=== PATIENT | male | born 1980 | race American Indian/Alaskan Native ===

== ENCOUNTER 2021-03-23 10:34 | Inpatient (IN) | payer SELFPAY ==
--- NOTE | 2021-03-23 10:49 | Emergency Department Report ---
<OLEGARIO BURROUGHS - Last Filed: 03/24/21 00:16> ED Neuro Deficit HPI - General Chief Complaint: Neuro Symptoms/Deficit Stated Complaint: POSSIBLE CVA Time Seen by Provider: 03/23/21 10:46 - Related Data Home Medications: Home Medications Medication Instructions Recorded Confirmed Last Taken Aspirin EC [Halfprin EC] 81 mg PO QDAY 03/24/21 03/24/21 03/23/21 Lovastatin 20 mg PO QDAY 03/24/21 03/24/21 03/23/21 Metoprolol [Lopressor TAB] 50 mg PO BID 03/24/21 03/24/21 03/23/21 Allergies/Adverse Reactions: Allergies Allergy/AdvReac Type Severity Reaction Status Date / Time No Known Allergies Allergy Verified 03/23/21 10:39 ED Past Medical Hx - Medications Home Medications: Home Medications Medication Instructions Recorded Confirmed Last Taken Type Aspirin EC [Halfprin EC] 81 mg PO QDAY 03/24/21 03/24/21 03/23/21 History Lovastatin 20 mg PO QDAY 03/24/21 03/24/21 03/23/21 History Metoprolol [Lopressor TAB] 50 mg PO BID 03/24/21 03/24/21 03/23/21 History ED Course - Reevaluation(s) Reevaluation #5: 03/23/21 20:10 Patient examined by me. Patient is alert, oriented x3 in no acute distress. Stroke scale stable 0. I discussed the patient with Dr. Isaac Louie, neurosurgeon on-call and he stated that he is still trying to find a bed for him in [facility]. - Lab Data Result diagrams: 03/23/21 11:13 03/23/21 14:28 - Medical Decision Making Patient was brought in as a stroke alert. 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 He had problems with right- sided weakness and dysarthria. He was promptly evaluated by EMS and transported here for code stroke. Patient does admit that he is having right-sided weakness. He is having dysarthria. He does have some word finding issues. He is never had symptoms like this before. He has no blurry vision. He has had no history of recent head trauma. Patient has had no bleeding from the gut. He has had no hematuria. He denies other complaints at this time. Patient remained stable in the ER with stable vital sign. Stroke scale is 0. I discussed the patient with Dr. Isaac Louie, neurosurgeon on-call. He stated that he tried several hospital in the area and they do not have bed available. stated that to admit the patient to the hospital and he will make disposition for patient in the morning. I discussed the patient with Dr. Rojas, he agreed to admit the patient to medical service for further management. Critical Care Time: Yes Critical care time in (mins) excluding proc time.: 45 ED Disposition Clinical Impression: TIA (transient ischemic attack), Thrombosis of left middle cerebral artery Disposition: ADMITTED INPATIENT Is pt being admited?: Yes Condition: Stable <LUNA WILEY - Last Filed: 03/24/21 11:43> ED Neuro Deficit HPI - General Source: EMS Mode of arrival: Stretcher Limitations: No Limitations - History of Present Illness Initial Comments: Patient was brought in as a stroke alert. 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 He had problems with right-sided weakness and dysarthria. He was promptly evaluated by EMS and transported here for code stroke. Patient does admit that he is having right- sided weakness. He is having dysarthria. He does have some word finding issues. He is never had symptoms like this before. He has no blurry vision. He has had no history of recent head trauma. Patient has had no bleeding from the gut. He has had no hematuria. He denies other complaints at this time. ED Review of Systems ROS: Stated complaint: POSSIBLE CVA Other details as noted in HPI Comment: All other systems reviewed and negative Constitutional: denies: fever Eyes: denies: vision change ENT: denies: epistaxis Respiratory: other (No hemoptysis) Cardiovascular: denies: chest pain Endocrine: denies: unexplained weight loss Gastrointestinal: denies: hematemesis Genitourinary: denies: hematuria Musculoskeletal: denies: back pain Skin: denies: rash Neurological: as per HPI Hematological/Lymphatic: denies: easy bruising ED Neuro Physical Exam - General Limitations: No Limitations, Other (Pulse ox noted and normal per EMS) General appearance: alert, in no apparent distress Suspected Stroke: Yes - Head Head exam: Present: atraumatic - Eye Eye exam: Present: normal appearance, EOMI. Absent: scleral icterus - ENT ENT exam: Present: normal orophraynx, normal external ear exam - Neck Neck exam: Present: normal inspection. Absent: meningismus - Respiratory Respiratory exam: Present: normal lung sounds bilaterally. Absent: respiratory distress - Cardiovascular Cardiovascular Exam: Present: regular rate, normal rhythm - GI/Abdominal GI/Abdominal exam: Present: soft. Absent: tenderness - Extremities Exam Extremities exam: Present: normal capillary refill. Absent: pedal edema - Back Exam Back exam: Absent: CVA tenderness (R), CVA tenderness (L) - Neurological Exam Neurological exam: Present: alert - NIHSS Assessment Interval: Baseline 1a. Level of Consciousness: alert/keenly responsive 1b. LOC Questions: answers both correctly 1c. LOC Commands: performs tasks correctly 2. Best Gaze: normal 3. Visual: no visual loss 4. Facial Palsy: minor paralysis 5b. Motor Arm Right: drift 5a. Motor Arm Left: no drift 6a. Motor Leg Left: no drift 6b. Motor Leg Right: no drift 7. Limb Ataxia: absent 8. Sensory: normal 9. Best Language: mild/moderate aphasia 10. Dysarthria: mild/moderate dysarthria 11. Extinction/Inattention: no abnormality Total Score: 4 Stroke Severity: Minor Stroke - Psychiatric Psychiatric exam: Present: normal affect, normal mood - Skin Skin exam: Present: warm, dry ED Course Vital Signs 03/23/21 03/23/21 03/23/21 11:15 11:30 11:31 Temperature Pulse Rate 71 69 67 Respiratory 25 H 14 18 Rate Blood Pressure 145/93 Blood Pressure 145/93 [Left] O2 Sat by Pulse 99 99 99 Oximetry 03/23/21 03/23/21 03/23/21 11:45 12:00 12:01 Temperature Pulse Rate 70 67 65 Respiratory 18 20 10 L Rate Blood Pressure 159/74 154/80 Blood Pressure 159/74 154/80 [Left] O2 Sat by Pulse 100 100 100 Oximetry 03/23/21 03/23/21 03/23/21 12:15 12:31 12:45 Temperature Pulse Rate 70 66 73 Respiratory 27 H 25 H 14 Rate Blood Pressure 158/87 165/94 141/97 Blood Pressure 158/87 [Left] O2 Sat by Pulse 100 99 99 Oximetry 03/23/21 03/23/21 03/23/21 13:01 13:15 13:31 Temperature Pulse Rate 64 Respiratory 25 H 12 26 H Rate Blood Pressure 141/97 141/97 153/94 Blood Pressure [Left] O2 Sat by Pulse 98 99 100 Oximetry 03/23/21 03/23/21 03/23/21 13:45 14:00 14:09 Temperature 98.5 F Pulse Rate Respiratory 25 H 23 Rate Blood Pressure 152/92 153/98 Blood Pressure [Left] O2 Sat by Pulse 100 99 Oximetry 03/23/21 03/23/21 03/23/21 14:15 14:30 14:45 Temperature Pulse Rate Respiratory Rate Blood Pressure 147/93 139/97 145/95 Blood Pressure [Left] O2 Sat by Pulse 100 100 100 Oximetry 03/23/21 03/23/21 03/23/21 15:01 15:15 15:31 Temperature Pulse Rate Respiratory Rate Blood Pressure 152/95 143/98 152/98 Blood Pressure [Left] O2 Sat by Pulse 100 99 100 Oximetry 03/23/21 03/23/21 03/23/21 15:45 16:00 16:15 Temperature Pulse Rate Respiratory Rate Blood Pressure 155/92 146/94 148/96 Blood Pressure [Left] O2 Sat by Pulse 98 98 98 Oximetry 03/23/21 03/23/21 03/23/21 16:30 16:45 17:00 Temperature Pulse Rate Respiratory Rate Blood Pressure 148/96 146/86 133/86 Blood Pressure [Left] O2 Sat by Pulse 99 97 96 Oximetry 03/23/21 03/23/21 03/23/21 17:15 17:30 17:45 Temperature Pulse Rate 58 L Respiratory Rate Blood Pressure 140/93 131/84 151/91 Blood Pressure [Left] O2 Sat by Pulse 96 98 99 Oximetry 03/23/21 03/23/21 03/23/21 18:00 18:15 18:30 Temperature Pulse Rate 56 L Respiratory Rate Blood Pressure 141/94 139/92 140/95 Blood Pressure [Left] O2 Sat by Pulse 99 98 99 Oximetry 03/23/21 03/23/21 03/23/21 18:45 19:00 19:16 Temperature Pulse Rate Respiratory Rate Blood Pressure 152/92 144/85 146/88 Blood Pressure [Left] O2 Sat by Pulse 97 96 95 Oximetry 03/23/21 03/23/21 03/23/21 19:30 19:45 20:01 Temperature Pulse Rate Respiratory Rate Blood Pressure 130/84 129/81 127/81 Blood Pressure [Left] O2 Sat by Pulse 95 95 97 Oximetry 03/23/21 03/23/21 03/23/21 20:15 20:30 20:45 Temperature Pulse Rate Respiratory Rate Blood Pressure 136/84 142/90 135/83 Blood Pressure [Left] O2 Sat by Pulse 95 96 91 Oximetry 03/23/21 03/23/21 03/23/21 21:01 21:15 21:30 Temperature Pulse Rate Respiratory Rate Blood Pressure 137/84 145/82 145/92 Blood Pressure [Left] O2 Sat by Pulse 94 98 96 Oximetry 03/23/21 03/23/21 03/23/21 21:45 22:00 22:15 Temperature Pulse Rate Respiratory Rate Blood Pressure 139/89 129/82 137/87 Blood Pressure [Left] O2 Sat by Pulse 94 95 94 Oximetry 03/23/21 03/23/21 03/23/21 22:23 22:30 22:45 Temperature Pulse Rate Respiratory Rate Blood Pressure 137/87 146/84 155/87 Blood Pressure [Left] O2 Sat by Pulse 95 95 95 Oximetry 03/23/21 03/23/21 03/23/21 23:00 23:15 23:30 Temperature Pulse Rate Respiratory Rate Blood Pressure 136/92 150/88 139/93 Blood Pressure [Left] O2 Sat by Pulse 97 96 96 Oximetry 03/23/21 03/24/21 03/24/21 23:45 00:00 00:15 Temperature Pulse Rate Respiratory Rate Blood Pressure 145/90 137/88 145/93 Blood Pressure [Left] O2 Sat by Pulse 94 96 96 Oximetry 03/24/21 03/24/21 03/24/21 00:30 00:45 01:01 Temperature Pulse Rate Respiratory Rate Blood Pressure 134/98 142/101 131/98 Blood Pressure [Left] O2 Sat by Pulse 90 93 98 Oximetry 03/24/21 03/24/21 03/24/21 01:15 01:30 01:45 Temperature Pulse Rate Respiratory Rate Blood Pressure 134/87 136/88 129/82 Blood Pressure [Left] O2 Sat by Pulse 96 96 97 Oximetry 03/24/21 03/24/2122 02:00 02:01 02:15 Temperature Pulse Rate Respiratory 18 Rate Blood Pressure 116/89 143/100 Blood Pressure [Left] O2 Sat by Pulse 100 97 97 Oximetry 03/24/21 03/24/21 03/24/21 02:31 02:45 03:00 Temperature Pulse Rate Respiratory Rate Blood Pressure 143/101 130/73 120/69 Blood Pressure [Left] O2 Sat by Pulse 97 96 94 Oximetry 03/24/21 03/24/21 03/24/21 03:15 03:30 03:45 Temperature Pulse Rate Respiratory Rate Blood Pressure 131/74 126/72 136/77 Blood Pressure [Left] O2 Sat by Pulse 96 97 97 Oximetry 03/24/21 03/24/21 03/24/21 04:00 04:15 04:30 Temperature Pulse Rate Respiratory Rate Blood Pressure 137/94 142/90 142/91 Blood Pressure [Left] O2 Sat by Pulse 97 99 96 Oximetry 03/24/21 03/24/21 03/24/21 04:45 05:01 05:15 Temperature Pulse Rate Respiratory Rate Blood Pressure 154/98 145/91 140/90 Blood Pressure [Left] O2 Sat by Pulse 95 99 95 Oximetry 03/24/21 03/24/21 03/24/21 05:30 05:45 06:00 Temperature Pulse Rate Respiratory Rate Blood Pressure 143/85 152/93 164/89 Blood Pressure [Left] O2 Sat by Pulse 97 97 97 Oximetry 03/24/21 03/24/21 03/24/21 06:15 06:30 06:45 Temperature Pulse Rate Respiratory Rate Blood Pressure 154/92 143/89 149/86 Blood Pressure [Left] O2 Sat by Pulse 98 97 98 Oximetry 03/24/21 03/24/21 07:00 08:35 Temperature Pulse Rate 74 Respiratory 16 Rate Blood Pressure 145/89 Blood Pressure 149/84 [Left] O2 Sat by Pulse 98 96 Oximetry - Reevaluation(s) Reevaluation #1: 03/23/21 10:40 EMS was met upon arrival. Patient was taken urgently to CT. Neurology was to be on the camera. Old records reviewed. Reevaluation #2: 03/23/21 11:25 CT imaging is complete. Neurology is evaluating the patient. CT reads are pending. Reevaluation #3: 03/23/21 12:47 Case had been discussed with the receiving facility and attending at [facility]. They did not have beds available. Patient was contemplating signing out AGAINST MEDICAL ADVICE. I did have a conversation with him and his spouse. They have now agreed that transfer would be appropriate. We are attempting to find bed placement at [facility]. Case had also been discussed multiple times with the on- call neurologist. Reevaluation #4: 03/23/21 15:07 Case has been discussed with the neuro interventionalist at multiple facilities including [facility], [facility], [facility], [facility], [place], and [facility]. None of them believe that intervention is emergently indicated at this time. Patient's symptoms have improved. He does have thrombus that needs to be addressed, but their recommendation is symptomatic treatment, complete stroke work-up, and intervene if needed. At this time, there do not appear to be any Hospital systems within the state boundaries that can accept this patient that have neuro intervention. We will further discuss with the hospitalist. Case has been discussed with the neurologist who agrees that the recommendation was for transfer if possible as put in the note. During this pandemic, this does not appear to be possible. - Lab Data Result diagrams: 03/23/21 11:13 03/23/21 14:28 Lab Results 03/23/21 03/23/21 03/23/21 Range/Units 11:12 11:12 11:12 WBC (4.5-11.0) K/mm3 RBC (3.65-5.03) M/mm3 Hgb (11.8-15.2) gm/dl Hct (35.5-45.6) % MCV (84-94) fl MCH (28-32) pg MCHC (32-34) % RDW (13.2-15.2) % Plt Count (140-440) K/mm3 Lymph % (Auto) (13.4-35.0) % [place] % (Auto) (0.0-7.3) % Eos % (Auto) (0.0-4.3) % Baso % (Auto) (0.0-1.8) % Lymph # (Auto) (1.2-5.4) K/mm3 [place] # (Auto) (0.0-0.8) K/mm3 Eos # (Auto) (0.0-0.4) K/mm3 Baso # (Auto) (0.0-0.1) K/mm3 Seg Neutrophils % (40.0-70.0) % Seg Neutrophils # (1.8-7.7) K/mm3 PT 13.4 (12.2-14.9) Sec. INR 0.92 (0.87-1.13) APTT 35.3 (24.2-36.6) Sec. Thrombin Time 20.1 H (15.1-19.6) Sec. Heparin Anti-Xa Level (0.3-0.7) U.I./ml Sodium (137-145) mmol/L Potassium (3.6-5.0) mmol/L Chloride (98-107) mmol/L Carbon Dioxide (22-30) mmol/L Anion Gap mmol/L BUN (9-20) mg/dL Creatinine (0.8-1.3) mg/dL Estimated GFR ml/min BUN/Creatinine Ratio % Glucose (75-100) mg/dL Hemoglobin A1c (4-6) % Calcium (8.4-10.2) mg/dL Total Creatine Kinase 123 (55-170) units/L CK-MB (CK-2) < 1.0 (0.0-4.0) ng/mL CK-MB (CK-2) Rel Index 0.8 (0-4) Troponin T < 0.010 (0.00-0.029) ng/mL Triglycerides 71 (2-149) mg/dL Cholesterol 192 (50-199) mg/dL LDL Cholesterol Direct 142 H (50-130) mg/dL HDL Cholesterol 39 L (40-59) mg/dL Cholesterol/HDL Ratio 4.92 % 03/23/21 03/23/21 03/23/21 Range/Units 11:13 14:28 15:30 WBC 7.2 (4.5-11.0) K/mm3 RBC 5.05 H (3.65-5.03) M/mm3 Hgb 14.6 (11.8-15.2) gm/dl Hct 47.5 H (35.5-45.6) % MCV 94 (84-94) fl MCH 29 (28-32) pg MCHC 31 L (32-34) % RDW 15.8 H (13.2-15.2) % Plt Count 383 (140-440) K/mm3 Lymph % (Auto) 34.7 (13.4-35.0) % [place] % (Auto) 8.3 H (0.0-7.3) % Eos % (Auto) 1.6 (0.0-4.3) % Baso % (Auto) 1.4 (0.0-1.8) % Lymph # (Auto) 2.5 (1.2-5.4) K/mm3 [place] # (Auto) 0.6 (0.0-0.8) K/mm3 Eos # (Auto) 0.1 (0.0-0.4) K/mm3 Baso # (Auto) 0.1 (0.0-0.1) K/mm3 Seg Neutrophils % 54.0 (40.0-70.0) % Seg Neutrophils # 3.9 (1.8-7.7) K/mm3 PT (12.2-14.9) Sec. INR (0.87-1.13) APTT (24.2-36.6) Sec. Thrombin Time (15.1-19.6) Sec. Heparin Anti-Xa Level (0.3-0.7) U.I./ml Sodium 139 (137-145) mmol/L Potassium 4.7 (3.6-5.0) mmol/L Chloride 102.6 (98-107) mmol/L Carbon Dioxide 22 (22-30) mmol/L Anion Gap 19 mmol/L BUN 8 L (9-20) mg/dL Creatinine 1.0 (0.8-1.3) mg/dL Estimated GFR > 60 ml/min BUN/Creatinine Ratio 8 % Glucose 89 (75-100) mg/dL Hemoglobin A1c 6.7 H (4-6) % Calcium 8.9 (8.4-10.2) mg/dL Total Creatine Kinase (55-170) units/L CK-MB (CK-2) (0.0-4.0) ng/mL CK-MB (CK-2) Rel Index (0-4) Troponin T (0.00-0.029) ng/mL Triglycerides (2-149) mg/dL Cholesterol (50-199) mg/dL LDL Cholesterol Direct (50-130) mg/dL HDL Cholesterol (40-59) mg/dL Cholesterol/HDL Ratio % 03/23/21 03/24/21 Range/Units 19:15 01:03 WBC (4.5-11.0) K/mm3 RBC (3.65-5.03) M/mm3 Hgb (11.8-15.2) gm/dl Hct (35.5-45.6) % MCV (84-94) fl MCH (28-32) pg MCHC (32-34) % RDW (13.2-15.2) % Plt Count (140-440) K/mm3 Lymph % (Auto) (13.4-35.0) % [place] % (Auto) (0.0-7.3) % Eos % (Auto) (0.0-4.3) % Baso % (Auto) (0.0-1.8) % Lymph # (Auto) (1.2-5.4) K/mm3 [place] # (Auto) (0.0-0.8) K/mm3 Eos # (Auto) (0.0-0.4) K/mm3 Baso # (Auto) (0.0-0.1) K/mm3 Seg Neutrophils % (40.0-70.0) % Seg Neutrophils # (1.8-7.7) K/mm3 PT (12.2-14.9) Sec. INR (0.87-1.13) APTT (24.2-36.6) Sec. Thrombin Time (15.1-19.6) Sec. Heparin Anti-Xa Level 0.33 0.46 (0.3-0.7) U.I./ml Sodium (137-145) mmol/L Potassium (3.6-5.0) mmol/L Chloride (98-107) mmol/L Carbon Dioxide (22-30) mmol/L Anion Gap mmol/L BUN (9-20) mg/dL Creatinine (0.8-1.3) mg/dL Estimated GFR ml/min BUN/Creatinine Ratio % Glucose (75-100) mg/dL Hemoglobin A1c (4-6) % Calcium (8.4-10.2) mg/dL Total Creatine Kinase (55-170) units/L CK-MB (CK-2) (0.0-4.0) ng/mL CK-MB (CK-2) Rel Index (0-4) Troponin T (0.00-0.029) ng/mL Triglycerides (2-149) mg/dL Cholesterol (50-199) mg/dL LDL Cholesterol Direct (50-130) mg/dL HDL Cholesterol (40-59) mg/dL Cholesterol/HDL Ratio % Critical care attestation.: If time is entered above; I have spent that time in minutes in the direct care of this critically ill patient, excluding procedure time.
[2021-03-23 11:27] LABS: Basophils # (Auto) 0.1 K/mm3 (0.0-0.1); Basophils % (Auto) 1.4 % (0.0-1.8); Eosinophils # (Auto) 0.1 K/mm3 (0.0-0.4); Eosinophils % (Auto) 1.6 % (0.0-4.3); Lymphocytes # (Auto) 2.5 K/mm3 (1.2-5.4); Lymphocytes % (Auto) 34.7 % (13.4-35.0); Mean Corpuscular HGB Conc 31 % (32-34); Mean Corpuscular Volume 94 fl (84-94); Monocytes # (Auto) 0.6 K/mm3 (0.0-0.8); Monocytes % (Auto) 8.3 % (0.0-7.3); Platelet Count 383 K/mm3 (140-440); Red Blood Count 5.05 M/mm3 (3.65-5.03); Red Cell Distribution Width 15.8 % (13.2-15.2)
[2021-03-23 11:28] LABS: Hematocrit 47.5 % (35.5-45.6); Hemoglobin 14.6 gm/dl (11.8-15.2)
[2021-03-23 11:35] LABS: INR 0.92 (0.87-1.13); Partial Thromboplastin Time 35.3 Sec. (24.2-36.6)
[2021-03-23 11:36] LABS: Thrombin Time 20.1 Sec. (15.1-19.6)
--- NOTE | 2021-03-23 11:51 | Cat Scan Report ---
CT NONENHANCED CT SCAN OF THE HEAD: INDICATION / CLINICAL INFORMATION: 41 years Male; stroke sx. TECHNIQUE: Routine CT head without contrast. All CT scans at this location are performed using CT dos e reduction for ALARA by means of automated exposure control. COMPARISON: None. FINDINGS: BRAIN / INTRACRANIAL CONTENTS: No intracerebral hemorrhage or stroke mimics No acute hemorrhage, mass effect, midline shift, hydrocephalus, or acute, large territorial infarct. Low-attenuation lesion in volving right superior temporal gyrus and right angular gyrus; difficult to determine the age of this ischemia; adjacent cortical sulci appear to be prominent; probably chronic but unable to confirm. No significant white matter abnormality. CRANIOCERVICAL JUNCTION: No significant abnormality. ORBITS: No significant abnormality of visualized orbits. SINUSES / MASTOIDS: No significant abnormality of the visualized paranasal sinuses or mastoid air travis ls. ADDITIONAL FINDINGS: None. IMPRESSION: No Intracerebral hemorrhage or stroke mimics; low-attenuation area involving the right angular gyrus and right superior temporal gyrus; ischemia; age indeterminate CTA NECK WITH CONTRAST HISTORY: "Stroke COMPARISON: None. TECHNIQUE: Routine CTA of the neck was performed. 3-D/MIP reformats were postprocessed. Percentage s tenosis is determined by direct quantitative measurements of diseased internal carotid artery diamete r compared with normal distal internal carotid artery reference segments or by criteria similar to NA SCET where applicable.All CT scans at this location are performed using CT dose reduction for ALARA b y means of automated exposure control CONTRAST: 100 ml of Omnipaque 350 FINDINGS: Aortic arch: No significant abnormality. 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 Carotid bifurcations: Normal Cervical internal carotid arteries: CTA of the neck, cervical segment of internal carotid arteries no rmal up to C2-C3 disc level; in the CTA of the head, both internal carotid arteries are normal above and below the level of occipital condyles; internal carotid arteries at C2 up to just below the skull base not included in the [id number] Additional findings: None. 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 Posterior cerebral arteries: No significant abnormality. Both posterior communicating arteries are co ntributing to posterior cerebral arteries Intracranial internal carotid arteries: No significant abnormality. Anterior cerebral arteries: No significant abnormality. Middle cerebral arteries: No significant abnormality. Dural venous sinuses:Not optimally opacified. No significant abnormality. Additional findings: None. IMPRESSION: 1. No significant abnormality. Signer Name: Reba Jacobo MD Signed: 03/23/2021 11:46 AM Workstation Name: [id number]
[2021-03-23] MEDS ORDERED: ASPIRIN 81 MG TAB CHEW PO ONE (11:59)
[2021-03-23 12:00] LABS: Creatine Kinase MB < 1.0 ng/mL (0.0-4.0)
[2021-03-23] MEDS ORDERED: HEPARIN 10,000 UNITS/10 ML VIAL IV ONE (12:00)
[2021-03-23] MEDS ORDERED: HEPARIN/ 0.45% NACL DRIP 25,000 UNIT/500 ML BAG IV SCH (12:00)
--- NOTE | 2021-03-23 12:01 | Consultation ---
Medications and Allergies Allergies Allergy/AdvReac Type Severity Reaction Status Date / Time No Known Allergies Allergy Verified 03/23/21 10:39 Results - Laboratory Findings CBC and BMP: 03/23/21 11:13 Abnormal Lab Findings: Abnormal Labs 03/23/21 03/23/21 11:12 11:13 RBC 5.05 H Hct 47.5 H MCHC 31 L RDW 15.8 H [place] % (Auto) 8.3 H Thrombin Time 20.1 H Assessment and Plan [facility] Consult Note # Demographics Consult Type: Acute Stroke Level 1 (0-4.5 hrs) Patient Location: Emergency Room First Name: Tone Last Name: Ketty Age: 41 Gender: Male Facility: [facility] Time of Initial Page (): 03/23/2021, 10:19 Time of Return Call ( Time): 03/23/2021, 10:20 # HPI History: 41M with right arm weakness, left gaze, 10:00 reportedly was well. Mild right arm weakness and aphasia is reported. # Scores Time of exam and NIHSS ( Time): 03/23/2021, 11:26 Level of Consciousness 1a: [0] = Alert; keenly responsive LOC Questions 1b: [0] = Answers both questions correctly LOC Commands 1c: [0] = Performs both tasks correctly Best Gaze 2: [0] = Normal Visual 3: [0] = No visual loss Facial Palsy 4: [0] = Normal symmetrical movements Motor Arm Left 5a: [0] = No drift Motor Arm Right 5b: [0] = No drift Motor Leg Left 6a: [0] = No drift Motor Leg Right 6b: [0] = No drift Limb Ataxia 7: [0] = Absent Sensory 8: [0] = Normal Best Language 9: [0] = No aphasia Dysarthria 10: [0] = Normal Extinction and Inattention 11: [0] = No abnormality NIHSS Total: 0 # PMH-FH-SH Past Medical History: hypertension Social History: smoker # Assessment Impression: Transient Ischemic Attack No residual deficit, or non-disabling deficit that I can identify. Risk > benefit for IV tPA with available data. # Plan Thrombolytic/Intervention: NOT IV Thrombolysis or IA Intervention candidate Thrombolytic Exclusion (< 3 hour window): non-disabling deficit Intraarterial Exclusion: other pending CTA head/neck. Target Blood Pressure: SBP < 220 Labs: urine drug screen Imaging: (urgency: STAT): CT Angiogram Head and CT Angiogram Neck Imaging: (urgency: routine): MRI Brain without contrast Diagnostic Test: echo with bubble study Medication: anticoagulation with heparin infusion Other: LDL < 70 If patient has any neurological deterioration please call me back immediately permissive hypertension telemetry monitoring I have discussed my recommendations with the referring provider Additional Recommendations: benefit > risk as best I can determine for heparin gtt given suspected non-occlusive thrombus left MCA and possibly vertebral artery also. Transfer to neuro-endovascular center if possible in case intervention needed. Disposition: transfer to [place] capable facility # Logistics Telemedicine: Interactive 2 way audio and visual telecommunication technology was utilized during this visit
--- NOTE | 2021-03-23 12:05 | Cat Scan Report ---
CT angio head INDICATION / CLINICAL INFORMATION: 41 years Male; stroke sx. TECHNIQUE: Thin cut axial images obtained through the head during IV bolus contrast administration. S agittal, coronal, and 3 plane MIP reconstructions performed by the technologist. NASCET type criteria used evaluate stenoses. Automated exposure control utilized for radiation reduction purposes. . COMPARISON: None available. FINDINGS: INTERNAL CAROTID ARTERIES: No significant narrowing appreciated. VERTEBROBASILAR SYSTEM: Vertebral basilar system is diminutive in size. A majority of blood flow to t he posterior cerebral circulation is fed via posterior communicating arteries. The right vertebral artery appears to be widely patent. The left vertebral artery appears to be occlu ded in the region of foramen magnum. Presumably the distal left vertebral artery is being fed via ret rograde flow. The basilar artery, although diminutive in size, appears to be widely patent throughout. DISTAL BRANCHES: Distal branches of the anterior, middle, and posterior cerebral arteries are fairly symmetric in appearance and number. However, findings suggest a focus of nonocclusive thrombus or soft tissue plaque in the MCA trifurcat ion region on the left, extending for approximately 5 mm. In addition, a focal area of narrowing (or thrombus) may be present in the a posterior sylvian fissure branch of the MCA territory on the right, which appears to supply the supramarginal gyral region. The A1 segment on the right is relatively hypoplastic when compared with the left. ANEURYSM: None identified. ADDITIONAL FINDINGS: Prominent soft tissue is seen in the roof the nasopharynx, presumably related to reactive adenoidal tissue. Please clinically correlate. Mild to moderate mucosal thickening seen in the ethmoids. Mucous retention cysts/polyps seen in both maxillary antra. Note, subacute to chronic, small branch, MCA infarct is seen in the right parietotemporal region. Dif fusion imaging by MRI may be helpful for further evaluation. IMPRESSION: 1. Nonocclusive thrombus versus soft tissue plaque seen in the MCA trifurcation region on the left as described above. 2. Occlusions of a portion of the left vertebral artery suggested, as described above. 2. Subacute to chronic, small branch, posterior MCA infarct noted on the right, as described above. CRITICAL RESULT: Exam Completed (ANIMAL CARE SPECIALIST/CDT): 03/23/2021 10:26 AM Exam Reviewed (ANIMAL CARE SPECIALIST/CDT): 10:45 AM Time of Communication (ANIMAL CARE SPECIALIST/CDT): 10:55 AM Licensed Practitioner Receiving Report: Dr. Lassiter Information confirmed: Yes. Signer Name: Morales Thakur MD, III Signed: 03/23/2021 12:01 PM Workstation Name: [id number]
--- NOTE | 2021-03-23 13:12 | Cat Scan Report ---
CT HEAD WITHOUT CONTRAST INDICATION / CLINICAL INFORMATION: call report [phone] weakness code stroke. TECHNIQUE: Axial imaging performed from the skull apex through the skull base without the use of cont rast. Sagittal and coronal reformatted images. All CT scans at this location are performed using CT dose reduction for ALARA by means of automated exposure control. COMPARISON: None available. FINDINGS: CEREBRAL PARENCHYMA: Chronic infarct in the right posterior temporal lobe measures up to 2.6 x 1.8 cm in axial plane. 7 mm chronic lacunar infarct in the right subinsular region is also identified. No a cute parenchymal abnormality or mass is detected. HEMORRHAGE: None. EXTRA-AXIAL SPACES: Normal in size and morphology for the patient's age. VENTRICULAR SYSTEM: Normal in size and morphology for the patient's age. MIDLINE SHIFT OR HERNIATION: None. CEREBELLUM / BRAINSTEM: No significant abnormality. CALVARIUM: No significant abnormality. ORBITS: Normal as visualized. PARANASAL SINUSES / MASTOID AIR CELLS: An approximate 1.5 cm polyp is identified in the inferior left maxillary sinus. The remaining sinuses are clear. SOFT TISSUES of HEAD: No significant abnormality. ADDITIONAL FINDINGS: None. IMPRESSION: No acute intracranial abnormality. Chronic right posterior temporal infarct. Chronic right subinsular infarct. Left maxillary sinus polyp. CODE STROKE: Time of Communication (SENIOR PYTHON DEVELOPER/CDT): 1201 hours Licensed Practitioner Receiving Report: Dong Signer Name: Arsenio Stephenson Jr, MD Signed: 03/23/2021 1:07 PM Workstation Name: [id number]
[2021-03-23 15:01] LABS: BUN/Creatinine Ratio 8; Blood Urea Nitrogen 8 mg/dL (9-20); Calcium 8.9 mg/dL (8.4-10.2); Hemolysis Index 17
[2021-03-23 15:32] LABS: Chol/HDL Ratio 4.92 %
[2021-03-24] MEDS ORDERED: METOCLOPRAMIDE 10 MG TAB PO PRN (01:19)
[2021-03-24] MEDS ORDERED: ACETAMINOPHEN 325 MG TAB PO PRN (01:19)
[2021-03-24] MEDS ORDERED: MAGNESIUM HYDROXIDE (MOM) ORAL LIQD UDC PO PRN ×2 (01:19)
[2021-03-24] MEDS ORDERED: PROMETHAZINE 25 MG RECT SUPP PR PRN (01:19)
[2021-03-24] MEDS ORDERED: ONDANSETRON 4 MG/2 ML INJ IV PRN ×2 (01:19)
[2021-03-24] MEDS ORDERED: MORPHINE 4 MG/1 ML INJ IV PRN (01:19)
[2021-03-24] MEDS ORDERED: MORPHINE 2 MG/1 ML INJ IV PRN (01:19)
--- NOTE | 2021-03-24 01:30 | History and Physical Report ---
History of Present Illness Date of examination: 03/24/21 Date of admission: 03/24/2021 Chief complaint: Right-sided weakness Dysarthria History of present illness: 41-year-old -Surinamese male with no significant past medical history brought into the emergency room today via EMS for evaluation of right-sided weakness and dysarthria. Patient was said to be driving to [place] when he suddenly developed a right-sided weakness and dysarthria. He was having dif ficulty finding his words. Patient denies any headache, no blurry vision and no diaphoresis. He denies any fever or chills, no nausea vomiting and no abdominal pain. He denies any fall and no recent trauma to head. He denies having this type of symptoms in the past. Work-up in the emergency room today, no acute intracranial abnormality however there is chronic right posterior temporal infarct, chronic right subinsular infarct, left maxillary sinus polyp. CTA of the head however shows a nonocclusive thrombus versus soft tissue plaque seen in the MCA trial furcation region on the left. Occlusions of a portion of the left vertebral artery suggested, subacute to chronic small branch posterior MCA infarct also noted. CT a of the neck was unremarkable. Patient was evaluated by the teleneurologist and recommendation was to transfer patient to a facility with interventional radiologist. Several attempts were made by the ER physician to have patient transferred but there were no facilit ies with available beds. NeurosurgeonDr. Louie was subsequently consulted who recommended patient being admitted here and will be followed in the a.m. Patient has been commenced on anticoagulation with heparin drip. Patient however does feel stable and indicates his weakness and dysarthria has completely resolved. Past History Past Medical History: No medical history Past Surgical History: No surgical history Social history: no significant social history Family history: no significant family history Medications and Allergies Allergies Allergy/AdvReac Type Severity Reaction Status Date / Time No Known Allergies Allergy Verified 03/23/21 10:39 Active Meds: Active Medications Atorvastatin Calcium (Atorvastatin 40 Mg Tab) 40 mg PO QHS CRYSTAL Heparin Sodium/Sodium Chloride (Heparin/ 0.45% Nacl-25,000 Unit/500 Ml) 25,000 unit in 500 mls @ 27 mls/hr IV TITR CRYSTAL; Protocol Last Titration: 03/23/21 20:00 Dose: 1,350 units/hr, 27 mls/hr Documented by: Review of Systems Constitutional: no fever, no chills Ears, nose, mouth and throat: no nasal congestion, no sore throat Cardiovascular: no chest pain, no palpitations Respiratory: no cough, no shortness of breath Gastrointestinal: no abdominal pain, no nausea, no vomiting, no diarrhea Genitourinary Male: no dysuria, no hematuria, no nocturia Musculoskeletal: no neck pain, no low back pain Integumentary: no rash, no pruritis Neurological: no headaches, no confusion Psychiatric: no anxiety, no depression Endocrine: no polyphagia, no polydipsia, no polyuria, no nocturia Exam - Constitutional Vitals: Temp Pulse Resp BP Pulse Ox 98.5 F 56 L 23 137/87 94 03/23/21 14:09 03/23/21 18:30 03/23/21 14:00 03/23/21 22:15 03/23/21 22:15 General appearance: Present: no acute distress, well-nourished - EENT Eyes: Present: PERRL, EOM intact. Absent: scleral icterus ENT: hearing intact, clear oral mucosa, dentition normal - Neck Neck: Present: supple, normal ROM - Respiratory Respiratory effort: normal Respiratory: bilateral: CTA - Cardiovascular Rhythm: regular Heart Sounds: Present: S1 & S2. Absent: gallop, systolic murmur, diastolic murmur, rub, click - Extremities Extremities: no ischemia, pulses intact, pulses symmetrical, No edema, normal temperature, normal color, Full ROM Peripheral Pulses: within normal limits - Abdominal General gastrointestinal: Present: soft, non-tender, non-distended, normal bowel sounds. Absent: mass - Integumentary Integumentary: Present: clear, warm, dry, normal turgor. Absent: rash - Musculoskeletal Musculoskeletal: strength equal bilaterally - Psychiatric Psychiatric: appropriate mood/affect, intact judgment & insight, memory intact, cooperative - Neurologic Neurologic: CNII-XII intact, no focal deficits, moves all extremities HEART Score - HEART Score Troponin: Troponin T < 0.010 ng/mL (0.00-0.029) 03/23/21 11:12 Results - Labs CBC & Chem 7: 03/23/21 11:13 03/23/21 14:28 Labs: Abnormal lab results 03/23/21 03/23/21 03/23/21 Range/Units 11:12 11:12 11:13 RBC 5.05 H (3.65-5.03) M/mm3 Hct 47.5 H (35.5-45.6) % MCHC 31 L (32-34) % RDW 15.8 H (13.2-15.2) % [place] % (Auto) 8.3 H (0.0-7.3) % Thrombin Time 20.1 H (15.1-19.6) Sec. BUN (9-20) mg/dL Hemoglobin A1c (4-6) % LDL Cholesterol Direct 142 H (50-130) mg/dL HDL Cholesterol 39 L (40-59) mg/dL 03/23/21 03/23/21 Range/Units 14:28 15:30 RBC (3.65-5.03) M/mm3 Hct (35.5-45.6) % MCHC (32-34) % RDW (13.2-15.2) % [place] % (Auto) (0.0-7.3) % Thrombin Time (15.1-19.6) Sec. BUN 8 L (9-20) mg/dL Hemoglobin A1c 6.7 H (4-6) % LDL Cholesterol Direct (50-130) mg/dL HDL Cholesterol (40-59) mg/dL Assessment and Plan - Patient Problems (1) TIA (transient ischemic attack) Current Visit: Yes Status: Acute Plan to address problem: Patient admitted and we monitor neuro status. We will schedule patient for carotid Doppler and MRI of the brain. Consult placed to neurology for evaluation. (2) Thrombosis of left middle cerebral artery Current Visit: Yes Status: Acute Plan to address problem: Patient will be followed up by ID neurosurgeon. Currently on anticoagulation with heparin (3) DVT prophylaxis Current Visit: Yes Status: Acute Plan to address problem: Patient currently on anticoagulation with heparin. (4) Full code status Current Visit: Yes Status: Acute Plan to address problem: Patient is a full code.
[2021-03-24 08:37] VITALS: BP 149/84
[2021-03-24] MEDS ORDERED: ASPIRIN 325 MG TAB PO SCH (10:00)
--- NOTE | 2021-03-24 12:12 | Electrocardiograph Report ---
[facility] Test Date: 2021-03-23 Test Time: 17:40:05 Pat Name: MAXWELL RENAE Department: Room: [place] [address] Gender: M Brusher Warp: GP : 1980 Requested By: LUNA WILEY Order Number: [id number] Reading MD: Alessandro Wade Measurements Intervals [place] Rate: 59 P: 5 WA: 162 QRS: 51 QRSD: 94 T: -50 QT: 383 QTc: 380 Interpretive Statements Sinus bradycardia Anterolateral infarct, age indeterminate Possible old inferior FL No previous ECG available for comparison Electronically Signed On 03-24-2021 12:12:00 EST by Alessandro Wade
--- NOTE | 2021-03-24 14:19 | Discharge Summary ---
Providers - Providers Date of Admission: 03/24/21 01:19 Attending physician: BRENDON RHOADES MD 03/23/21 23:30 Consult to Physician [CONS] Stat Comment: Consulting Provider: NEO AARON II Physician Instructions: Reason For Exam: TIA 03/24/21 Consult to Physician [CONS] Routine Comment: Consulting Provider: SHAWN COREAS Physician Instructions: Reason For Exam: DYSARTHRIA, RIGHT SIDED WEAKNESS 03/24/21 01:19 Consult to Dietitian/Nutrition [CONS] Routine Physician Instructions: Reason For Exam: Reason for Consult: Nutrition Recommendations Reason for Consult: Diet education Occupational Therapy Evaluate and Treat [CONS] Routine Comment: Reason For Exam: Neuro deficits Physical Therapy Evaluation and Treat [CONS] Routine Comment: Reason For Exam: Neuro deficits 03/24/21 01:22 Speech Therapy Evaluation and Treat [CONS] Routine Reason For Exam: swallow eval Primary care physician: PHONOGRAPH MECHANIC Hospitalization Reason for admission: TIA Condition: Stable Hospital course: Right-sided weakness Dysarthria History of present illness: 41-year-old -[place] male with no significant past medical history brought into the emergency room today via EMS for evaluation of right-sided weakness and dysarthria. Patient was said to be [place] to [place] when he suddenly developed a right-sided weakness and dysarthria. He was having difficulty finding his words. Patient denies any headache, no blurry vision and no diaphoresis. He denies any fever or chills, no nausea vomiting and no abdominal pain. He denies any fall and no recent trauma to head. He denies having this type of symptoms in the past. Work-up in the emergency room today, no acute intracranial abnormality however there is chronic right posterior temporal infarct, chronic right subinsular infarct, left maxillary sinus polyp. CTA of the head however shows a nonocclusive thrombus versus soft tissue plaque seen in the MCA trial furcation region on the left. Occlusions of a portion of the left vertebral artery suggested, subacute to chronic small branch posterior MCA infarct also noted. CT a of the neck was unremarkable. Patient was evaluated by the teleneurologist and recommendation was to transfer patient to a facility with interventional radiologist. Several attempts were made by the ER physician to have patient transferred but there were no facilities with available beds. NeurosurgeonDr. Louie was subsequently consulted who recommended patient being admitted here and will be followed in the a.m. Patient has been commenced on anticoagulation with heparin drip. Patient however does feel stable and indicates his weakness and dysarthria has completely resolved. - Patient Problems (1) TIA (transient ischemic attack) Current Visit: Yes Status: Acute Plan to address problem: Patient admitted and we monitor neuro status. We will schedule patient for carotid Doppler and MRI of the brain. Consult placed to neurology for evaluation. (2) Thrombosis of left middle cerebral artery Current Visit: Yes Status: Acute Plan to address problem: Patient will be followed up by ID neurosurgeon. Currently on anticoagulation with heparin (3) DVT prophylaxis Current Visit: Yes Status: Acute Plan to address problem: Patient currently on anticoagulation with heparin. (4) Full code status Current Visit: Yes Status: Acute Plan to address problem: Patient is a full code. Treatment plan is as outlined above patient unfortunately left AGAINST MEDICAL ADVICE Disposition: LEFT AGAINST MEDICAL ADVICE Final Discharge Diagnosis (Prints w/discharge instructions): Apical thrombus with TIA WITH suspected non-occlusive thrombus left MCA and possibly vertebral artery Time spent for discharge: 35 mins Core Measure Documentation - Palliative Care Palliative Care/ Comfort Measures: Not Applicable - Core Measures Any of the following diagnoses?: stroke - Stroke Discharge Requirements Statin for LDL = or >70 mg/dl on DC: Not Applicable Reason for no statin on DC: Patient Refusal Anticoag for atrial fib/atrial flutter: Yes Reason for no anticoag for AF/F on DC: Patient Refusal Antithrombotic for ischemic stroke: Yes Reason for no antithrombotic on DC: Patient Refusal Exam - Physical Exam Narrative exam: General appearance: Present: no acute distress, well-nourished - EENT Eyes: Present: PERRL, EOM intact. Absent: scleral icterus ENT: hearing intact, clear oral mucosa, dentition normal - Neck Neck: Present: supple, normal ROM - Respiratory Respiratory effort: normal Respiratory: bilateral: CTA - Cardiovascular Rhythm: regular Heart Sounds: Present: S1 & S2. Absent: gallop, systolic murmur, diastolic murmur, rub, click - Extremities Extremities: no ischemia, pulses intact, pulses symmetrical, No edema, normal temperature, normal color, Full ROM Peripheral Pulses: within normal limits - Abdominal General gastrointestinal: Present: soft, non-tender, non-distended, normal bowel sounds. Absent: mass - Integumentary Integumentary: Present: clear, warm, dry, normal turgor. Absent: rash - Musculoskeletal Musculoskeletal: strength equal bilaterally - Psychiatric Psychiatric: appropriate mood/affect, intact judgment & insight, memory intact, cooperative - Neurologic Neurologic: CNII-XII intact, no focal deficits, moves all extremities - Constitutional Vitals: Temp Pulse Resp BP Pulse Ox 98.5 F 74 16 149/84 96 03/23/21 14:09 03/24/21 08:35 03/24/21 08:35 03/24/21 08:35 03/24/21 08:35 Plan Follow up with: PRIMARY CARE, [Primary Care Provider] - 3-5 Days
== END 2021-03-24 16:36 | disposition left against medical advice (07) | DRG 69 ==
LOC: ED 10:34 → 4A 03-24 01:19
PROVIDERS: ADMIT Internal Medicine Geriatric Medicine; ATTEND Internal Medicine
DX: G45.9 Transient cerebral ischemic attack, unspecified (principal); I66.02 Occlusion and stenosis of left middle cerebral artery; I10 Essential (primary) hypertension; Z53.29 Procedure and treatment not carried out because of patient's decision for other reasons; Z79.82 Long term (current) use of aspirin; Z79.899 Other long term (current) drug therapy
CPT/HCPCS: 36415; 70450; 70496; 70498; 80048; 80061; 82550; 82553; 83036; 84484; 85025; 85520; 85610; 85670; 85730; 93005; 93306; G0378; J3490; J1644; Q9967